=== PATIENT | female | born 1955 | race African-American/Black ===

== ENCOUNTER 2017-01-25 09:20 | Inpatient (IN) | payer MEDICAID, OTHER ==
[~2017-01-25] VITALS: Ht 162.6 cm; Wt 83.5 kg
[~2017-01-25 09:20] MED LIST: AMA2; AMLO5TAB4 PO; BENA5TAB; HYDR-3927; METF500T PO; OMEP20CA10 PO; SIMV10TA6 PO; TRAMADOL
[2017-01-25] MEDS ORDERED: [UNRECOGNIZED DRUG - OTHER] (09:31)
[2017-01-25] MEDS ORDERED: FURO40TA5 PO (09:31)
[2017-01-25] MEDS ORDERED: SPIR50TA26 PO (09:31)
[2017-01-25] MEDS ORDERED: FOLI-43 PO (09:31)
[2017-01-25] MEDS ORDERED: PANT40TA4 PO (09:31)
[2017-01-25] MEDS ORDERED: CETI10TA6 PO (09:31)
[2017-01-25 10:27] LABS: BASOPHILS % 0.9 % (0.0-2.0); CHLORIDE 100 mEq/L (98-107); DIFFERENTIAL COMMENT 0; EOSINOPHILS % 0.5 % (0.0-5.0); HEMATOCRIT. 37.4 % (36.0-48.0); HEMOGLOBIN. 12.5 g/dL (12.0-16.0); INDEX HEMOLYSI 1 (1-3); INDEX ICTERIC 6 (1-4); INDEX LIPEMIC 1 (1-3); LYMPHOCYTES % 15.1 % (20.0-50.0); MEAN CORPUSCULAR HEMOGLOBIN 34.3 pg (28.0-32.0); MEAN CORPUSCULAR HGB CONC 33.5 g/dL (31.0-37.0); MEAN CORPUSCULAR VOLUME 102.5 fL (81.0-99.0); MEAN PLATELET VOLUME 8.1 fl (7.4-10.4); MONOCYTES % 6.7 % (2.0-8.0); NEUTROPHILS % 76.8 % (40.0-76.0); PLATELET 195 x1000/uL (130-400); RED BLOOD CELL COUNT 3.65 mill/uL (4.2-5.4); RED CELL DISTRIBUTION WIDTH 18.4 % (11.6-14.6); WHITE BLOOD COUNT 13.8 x1000/uL (4.5-11.0)
[2017-01-25 10:31] LABS: INR 1.5; PROTHROMBIN TIME 15.6 sec
[2017-01-25 10:34] LABS: AMMONIA 74 uMol/L (<32)
[2017-01-25 10:36] LABS: ALANINE AMINOTRANSFERASE 78 IU/L (13-61); ALBUMIN 2.2 g/dL (3.4-5.0); ANION GAP 19; CALCIUM 9.5 mg/dL (8.5-10.1); CARBON DIOXIDE 22 mEq/L (21-32); ETHANOL BLOOD < 10 mg/dL; LIPASE 471 IU/L (73-393); UREA NITROGEN BLOOD 46 mg/dL (7-21); eGFR 56 mL/min (>60)
[2017-01-25] MEDS ORDERED: LACTULOSE 20G/30ML UDC PO ONE (11:30)
[2017-01-25] MEDS ORDERED: ONDANSETRON HCL 4MG/2ML VIAL IV ONE (11:45)
[2017-01-25] MEDS ORDERED: KETOROLAC 30MG/ML VIAL IV ONE (11:45)
[2017-01-25 12:09] LABS: CLARITY URINE CLEAR (CLEAR); COLOR URINE DARK YELLOW (YELLOW); GLUCOSE URINE NEGATIVE (NEGATIVE); KETONES URINE NEGATIVE (NEGATIVE); LEUKOCYTE ESTERASE URINE 1+ (NEGATIVE); NITRITE URINE NEGATIVE (NEGATIVE); OCCULT BLOOD URINE NEGATIVE (NEGATIVE); PROTEIN URINE NEGATIVE (NEGATIVE); SPECIFIC GRAVITY URINE 1.016 (1.005-1.030)
[2017-01-25 12:25] LABS: SQUAMOUS EPITHELIAL CELL URINE 3+ /lpf (RARE/1+)
[2017-01-25 12:27] LABS: *AMPHETAMINES SCREEN URINE NEGATIVE (NEGATIVE); *BARBITURATES SCREEN URINE NEGATIVE (NEGATIVE); *BENZODIAZEPINES SCREEN URINE NEGATIVE (NEGATIVE); *COCAINE SCREEN URINE NEGATIVE (NEGATIVE); BACTERIA URINE 3+; CANNABINOID URINE SCREEN NEGATIVE (NEGATIVE); ECSTASY MDMA SCREEN URINE NEGATIVE (NEGATIVE); METHADONE URINE SCREEN NEGATIVE (NEGATIVE); OPIATES URINE SCREEN NEGATIVE (NEGATIVE); PHENCYCLIDINE URINE SCREEN NEGATIVE (NEGATIVE)
[2017-01-25 12:28] LABS: RBC URINE NONE SEEN /hpf (0-2); WBC URINE 15-25 /hpf (0-2)
[2017-01-25] MEDS ORDERED: MAGNESIUM/ALUMINUM HYDROXIDE/SIMETHICONE 30ML UDC PO PRN (12:45)
[2017-01-25] MEDS ORDERED: ACETAMINOPHEN 325MG TABLET PO PRN (12:45)
[2017-01-25] MEDS ORDERED: CLONIDINE 0.1MG TABLET PO PRN (12:45)
[2017-01-25] MEDS ORDERED: ONDANSETRON HCL 4MG/2ML VIAL IV PRN (12:45)
[2017-01-25] MEDS ORDERED: DOCUSATE SODIUM 100MG CAPSULE PO PRN (12:45)
[2017-01-25] MEDS ORDERED: NITROGLYCERIN 0.4MG TABLET SL SL PRN (12:45)
[2017-01-25] MEDS ORDERED: LEVOFLOXACIN 500MG PREMIX 100 ML IV NR (12:50)
[2017-01-25 13:30] VITALS: BP 95/59
[2017-01-25] MEDS ORDERED: DEXTROSE 50% WATER 50ML SYRINGE IV PRN (14:15)
[2017-01-25 14:30] VITALS: BP 103/66
[2017-01-25] MEDS ORDERED: IPRATROPIUM/ALBUTEROL 0.5-3(2.5)MG/3ML NEB INH PRN (14:30)
[2017-01-25 16:00] VITALS: BP 101/76
[2017-01-25] MEDS: LACTULOSE 20G/30ML UDC PO SCH ×3 (16:00→23:48)
[2017-01-25] MEDS ORDERED: CEFTRIAXONE 1 G PREMIX 50 ML IV SCH (16:00)
[2017-01-25] MEDS: ENOXAPARIN 40MG/0.4ML SYR SUBCUT SCH (16:03)
[2017-01-25] MEDS: PANTOPRAZOLE SODIUM 40 MG/VIAL IV SCH (16:03)
[2017-01-25] MEDS ORDERED: LEVOFLOXACIN 500MG PREMIX 100 ML IV SCH (17:00)
[2017-01-25] MEDS: INSULIN LISPRO 100 UNITS/ML SUBCUT SCH ×2 (17:13→20:49)
[2017-01-25] MEDS: BLOOD SUGAR DIAGNOSTIC STRIP TEST SCH ×2 (17:14→20:48)
[2017-01-25] MEDS: KETOROLAC 15MG/ML VIAL IV PRN (18:57)
[2017-01-25 20:00] VITALS: BP 102/69
[2017-01-25] MEDS: RIFAXIMIN 550 MG TABLET PO SCH (20:48)
[2017-01-26] VITALS: BP 112/73
[2017-01-26 04:00] VITALS: BP 101/60
[2017-01-26] MEDS: LACTULOSE 20G/30ML UDC PO SCH ×2 (04:39→07:57)
[2017-01-26] MEDS: BLOOD SUGAR DIAGNOSTIC STRIP TEST SCH (06:45)
[2017-01-26] MEDS: INSULIN LISPRO 100 UNITS/ML SUBCUT SCH (07:48)
[2017-01-26] MEDS: ENOXAPARIN 40MG/0.4ML SYR SUBCUT SCH (07:57)
[2017-01-26] MEDS: RIFAXIMIN 550 MG TABLET PO SCH (07:57)
[2017-01-26] MEDS: PANTOPRAZOLE SODIUM 40 MG/VIAL IV SCH (07:57)
[2017-01-26] MEDS: KETOROLAC 15MG/ML VIAL IV PRN (07:57)
[2017-01-26 08:00] VITALS: BP 104/61
[2017-01-26 10:49] VITALS: BP 104/61
[2017-01-26] MEDS ORDERED: LEVOFLOXACIN 250MG PREMIX 50 ML IV SCH (17:00)
== END 2017-01-26 12:31 | disposition home or self-care (01) | DRG 279 ==
LOC: ER 09:20 → 6EST 11:50 → 8WST 01-26 12:12 → 6EST 01-26 12:29
PROVIDERS: ADMIT Internal Medicine; ATTEND Internal Medicine
DX: K72.90 Hepatic failure, unspecified without coma (principal); E43 Unspecified severe protein-calorie malnutrition; E78.00 Pure hypercholesterolemia, unspecified; K74.60 Unspecified cirrhosis of liver; N39.0 Urinary tract infection, site not specified; I10 Essential (primary) hypertension; E11.9 Type 2 diabetes mellitus without complications; R74.0 Nonspecific elevation of levels of transaminase and lactic acid dehydrogenase [LDH]; Z90.49 Acquired absence of other specified parts of digestive tract; Z68.31 Body mass index [BMI] 31.0-31.9, adult
CPT/HCPCS: 36415; 70450; 74176; 80053; 80305; 81001; 82140; 82962; 83036; 83690; 85025; 85610; 93005; 96374; 96375; 99291; C9113; G0482; J0696; J1650; J1815; J1885; J1956; J2405; J7050

== ENCOUNTER 2017-03-01 14:53 | Emergency (ER) | payer MEDICAID ==
[~2017-03-01] VITALS: Ht 162.6 cm; Wt 75.0 kg
[~2017-03-01 14:53] MED LIST changes: +CETI10TA6 PO; +FOLI-43 PO; +FURO40TA5 PO; +PANT40TA4 PO; +SPIR50TA26 PO; +[UNRECOGNIZED DRUG - OTHER]
[2017-03-01 19:04] LABS: CHLORIDE 100 mEq/L (98-107); INDEX HEMOLYSI 1 (1-3); INDEX ICTERIC 3 (1-4); INDEX LIPEMIC 1 (1-3)
[2017-03-01 19:05] LABS: INR 1.2; PROTHROMBIN TIME 12.8 sec
[2017-03-01 19:06] LABS: BASOPHILS % 1.8 % (0.0-2.0); EOSINOPHILS % 2.5 % (0.0-5.0); HEMATOCRIT. 32.8 % (36.0-48.0); HEMOGLOBIN. 11.1 g/dL (12.0-16.0); LYMPHOCYTES % 41.2 % (20.0-50.0); MEAN CORPUSCULAR HEMOGLOBIN 32.1 pg (28.0-32.0); MEAN CORPUSCULAR HGB CONC 33.7 g/dL (31.0-37.0); MEAN CORPUSCULAR VOLUME 95.1 fL (81.0-99.0); MEAN PLATELET VOLUME 8.2 fl (7.4-10.4); MONOCYTES % 11.9 % (2.0-8.0); NEUTROPHILS % 42.6 % (40.0-76.0); PLATELET 188 x1000/uL (130-400); RED BLOOD CELL COUNT 3.45 mill/uL (4.2-5.4); WHITE BLOOD COUNT 9.4 x1000/uL (4.5-11.0)
[2017-03-01 19:12] LABS: ALANINE AMINOTRANSFERASE 36 IU/L (13-61); ALBUMIN 2.7 g/dL (3.4-5.0); ANION GAP 12; CALCIUM 8.5 mg/dL (8.5-10.1); CARBON DIOXIDE 29 mEq/L (21-32); LIPASE 1230 IU/L (73-393); UREA NITROGEN BLOOD 25 mg/dL (7-21); eGFR 56 mL/min (>60)
[2017-03-01] MEDS ORDERED: DIPHENHYDRAMINE 25MG CAPSULE PO ONE (20:15)
[2017-03-01 20:49] VITALS: BP 132/78
== END 2017-03-01 20:56 | disposition home or self-care (01) ==
LOC: ER 19:29
DX: L50.9 Urticaria, unspecified (principal); E11.9 Type 2 diabetes mellitus without complications; E78.00 Pure hypercholesterolemia, unspecified; I10 Essential (primary) hypertension; K76.9 Liver disease, unspecified; Z90.49 Acquired absence of other specified parts of digestive tract
CPT/HCPCS: 36415; 80053; 83690; 85025; 85610; 99284; Q0163

== ENCOUNTER 2017-06-13 18:35 | Emergency (ER) | payer MEDICAID ==
[~2017-06-13] VITALS: Ht 162.6 cm; Wt 77.0 kg
[2017-06-13] MEDS ORDERED: SODIUM CHLORIDE 0.9% 1,000 ML IV ONE (19:01)
[2017-06-13] MEDS ORDERED: ACETAMINOPHEN 325MG TABLET PO STA (19:01)
[2017-06-13 19:37] LABS: HEMATOCRIT. 33.7 % (36.0-48.0); HEMOGLOBIN. 11.2 g/dL (12.0-16.0); MEAN CORPUSCULAR HEMOGLOBIN 29.2 pg (28.0-32.0); MEAN CORPUSCULAR VOLUME 87.7 fL (81.0-99.0); MEAN PLATELET VOLUME 7.8 fl (7.4-10.4); PLATELET 161 x1000/uL (130-400); RED BLOOD CELL COUNT 3.84 mill/uL (4.2-5.4); RED CELL DISTRIBUTION WIDTH 13.9 % (11.6-14.6)
[2017-06-13 19:42] LABS: CHLORIDE 101 mEq/L (98-107)
[2017-06-13 19:45] VITALS: BP 110/64
[2017-06-13 19:45] LABS: INR 1.3; PROTHROMBIN TIME 13.5 sec (9.4-11.6)
[2017-06-13 19:51] LABS: CARBON DIOXIDE 27 mEq/L (21-32)
[2017-06-13 20:16] LABS: PLATELET ESTIMATE NORMAL
[2017-06-13 20:52] LABS: CLARITY URINE CLOUDY (CLEAR); COLOR URINE DARK YELLOW (YELLOW); GLUCOSE URINE NEGATIVE (NEGATIVE); KETONES URINE TRACE (NEGATIVE); LEUKOCYTE ESTERASE URINE TRACE (NEGATIVE); NITRITE URINE NEGATIVE (NEGATIVE); OCCULT BLOOD URINE NEGATIVE (NEGATIVE); PROTEIN URINE NEGATIVE (NEGATIVE); SPECIFIC GRAVITY URINE 1.021 (1.005-1.030)
[2017-06-16] MEDS ORDERED: SPIR25TA4 PO (12:49)
== END 2017-06-13 21:42 | disposition home or self-care (01) ==
LOC: ER 19:59
DX: N28.9 Disorder of kidney and ureter, unspecified (principal); L53.9 Erythematous condition, unspecified; R50.9 Fever, unspecified; E11.9 Type 2 diabetes mellitus without complications; E78.00 Pure hypercholesterolemia, unspecified; I10 Essential (primary) hypertension; K76.9 Liver disease, unspecified; Z90.49 Acquired absence of other specified parts of digestive tract
CPT/HCPCS: 36415; 71010; 80053; 81001; 83605; 85025; 85610; 87040; 87077; 87186; 96360; 99285; J7030; Z7610

== ENCOUNTER 2018-09-11 17:21 | Emergency (ER) | payer MEDICAID ==
[~2018-09-11] VITALS: Ht 162.6 cm; Wt 90.0 kg
[~2018-09-11 17:21] MED LIST changes: +SPIR25TA6 PO; -SPIR50TA26 PO
[2018-09-11] MEDS ORDERED: ONDANSETRON HCL 4MG/2ML INJ IV STA (20:05)
[2018-09-11] MEDS ORDERED: SODIUM CHLORIDE 0.9% 1,000 ML IV ONE ×2 (20:05→20:15)
[2018-09-11 21:50] LABS: BASOPHILS % 0.5 % (0.0-2.0); EOSINOPHILS % 0.5 % (0.0-5.0); HEMATOCRIT. 35.6 % (36.0-48.0); HEMOGLOBIN. 11.9 g/dL (12.0-16.0); LYMPHOCYTES % 37.7 % (20.0-50.0); MEAN CORPUSCULAR HEMOGLOBIN 30.4 pg (28.0-32.0); MEAN PLATELET VOLUME 7.9 fl (7.4-10.4); NEUTROPHILS % 49.3 % (40.0-76.0); PLATELET 57 x1000/uL (130-400); RED BLOOD CELL COUNT 3.91 mill/uL (4.2-5.4)
[2018-09-11 21:52] LABS: COLOR URINE ORANGE (YELLOW); KETONES URINE 2+ (NEGATIVE); LEUKOCYTE ESTERASE URINE TRACE (NEGATIVE); NITRITE URINE NEGATIVE (NEGATIVE); OCCULT BLOOD URINE 1+ (NEGATIVE); PROTEIN URINE 3+ (NEGATIVE); SPECIFIC GRAVITY URINE 1.024 (1.005-1.030)
[2018-09-11 21:53] LABS: CHLORIDE 95 mEq/L (98-107)
[2018-09-11 21:54] LABS: CLARITY URINE HAZY (CLEAR)
[2018-09-11 21:57] LABS: ETHANOL BLOOD 244 mg/dL
[2018-09-11 22:13] LABS: *AMPHETAMINES SCREEN URINE NEGATIVE (NEGATIVE); *BARBITURATES SCREEN URINE NEGATIVE (NEGATIVE); *BENZODIAZEPINES SCREEN URINE NEGATIVE (NEGATIVE); *COCAINE SCREEN URINE NEGATIVE (NEGATIVE); METHADONE URINE SCREEN NEGATIVE (NEGATIVE)
[2018-09-11 22:14] LABS: CANNABINOID URINE SCREEN NEGATIVE (NEGATIVE); OPIATES URINE SCREEN NEGATIVE (NEGATIVE); PHENCYCLIDINE URINE SCREEN NEGATIVE (NEGATIVE)
[2018-09-12 06:21] VITALS: BP 128/71
== END 2018-09-12 06:24 | disposition home or self-care (01) ==
LOC: ER 17:21
DX: F10.229 Alcohol dependence with intoxication, unspecified (principal); Y90.8 Blood alcohol level of 240 mg/100 ml or more; K70.10 Alcoholic hepatitis without ascites; I10 Essential (primary) hypertension; E11.9 Type 2 diabetes mellitus without complications; Z79.899 Other long term (current) drug therapy
CPT/HCPCS: 36415; 80053; 80305; 81003; 83690; 85025; 93005; 96361; 96374; 99284; G0482; J2405; J7030